=== PATIENT | male | born 1945 | race Caucasian/White ===

== ENCOUNTER → 2016-12-29 | Outpatient (CLI) | payer MEDICARE, OTHER | END | disposition home or self-care (01) | LOC: CFH 13:53 | PROVIDERS: ATTEND Internal Medicine | DX: J84.89 Other specified interstitial pulmonary diseases (principal); J84.112 Idiopathic pulmonary fibrosis; I99.8 Other disorder of circulatory system; J94.8 Other specified pleural conditions | CPT/HCPCS: 71250 ==